=== PATIENT | male | born 1975 | race Caucasian/White ===

== ENCOUNTER 2023-01-28 21:53 | Emergency (ER) | payer OTHER ==
[~2023-01-28] VITALS: Ht 190.5 cm; Wt 158.3 kg
[2023-01-28] MEDS: MORPHINE SULFATE IM STA (22:26)
[2023-01-28] MEDS ORDERED: MORPHINE SULFATE ONE (22:28)
[2023-01-28 22:57] VITALS: BP 177/106; PULSE 90; RESP 18; TEMP 98.2; O2SAT 99
[2023-01-28] MEDS: LIDOCAINE HCL VISCOUS MM STA (23:15)
[2023-01-28] MEDS: MYLANTA PO STA (23:15)
[2023-01-28 23:42] VITALS: BP 119/61; PULSE 79; RESP 18; TEMP 98.2; O2SAT 94
== END 2023-01-28 23:45 | disposition home or self-care (01) ==
LOC: ER 21:53
DX: S92.001A Unspecified fracture of right calcaneus, initial encounter for closed fracture (principal); S92.002A Unspecified fracture of left calcaneus, initial encounter for closed fracture; I10 Essential (primary) hypertension; W19.XXXA Unspecified fall, initial encounter; Y93.89 Activity, other specified; Y92.89 Other specified places as the place of occurrence of the external cause; Y99.8 Other external cause status
CPT/HCPCS: 96372; 99284; 73630-LT; 73630-RT

== ENCOUNTER → 2024-05-18 | Outpatient (CLI) | payer OTHER ==
[2024-05-18 15:57] LABS: BASOPHIL % 0.6 % (0.2-1.2); EOSINOPHIL # 0.2 10^3/uL (0.0-0.2); EOSINOPHIL % 3.1 % (0.0-5.0); HEMATOCRIT(ML) 39.7 % (37.0-53.0); HEMOGLOBIN 14.2 g/dL (13.9-16.3); LYMPHOCYTES # 2.21 10^3/uL1 (1.0-4.8); LYMPHOCYTES % 34.5 % (24.0-44.0); MEAN CORP HGB 32.2 pg (26-34); MEAN CORP HGB CONCENTRATION 35.8 g/dL (33-36.5); MONOCYTES # 0.8 10^3/uL (0.3-0.8); MONOCYTES % 12.5 % (5.0-12.0); NEUTROPHIL # 3.2 10^3/uL (1.8-7.7); NEUTROPHILS % 49.3 % (41.0-85.0); PLATELET COUNT 227 10^3/uL (150-400); RED BLOOD CELL 4.41 10^6/uL (4.50-5.90); RED CELL DISTRIBUTION WIDTH 13.1 % (11.5-14.5); WHITE BLOOD CELL 6.4 10^3/uL (4.5-11.0)
[2024-05-18 16:06] LABS: +ADD MANUAL DIFF(NO CHRG) NO
[2024-05-18 16:12] LABS: INR 1.1; PROTHROMBIN PROTIME 11.2 SEC (9.3-11.6)
[2024-05-18 16:15] LABS: ALANINE AMINOTRANSFERASE(ML) 29 U/L (12-78); ALBUMIN/GLOBULIN RATIO 1.176; ALKALINE PHOSPHATASE 204 U/L (50-136); ANION GAP 7.9; ASPARTATE AMINO TRANSFERASE 23 U/L (0-35); CARBON DIOXIDE 32.5 mmol/L (20.0-32); CHOLESTEROL 84 mg/dL (120-240); CREATININE SERUM 1.19 mg/dL (0.59-1.40); EST GFR, NON-AA 65.5 (>/=60); GLUCOSE 85 mg/dL (74-106); HDL CHOLESTEROL 41 mg/dL (32-96); POTASSIUM 4.4 mmol/L (3.6-5.2); SODIUM 138 mmol/L (132-145)
[2024-05-18 16:35] LABS: LDL/HDL RATIO 0.9
[2024-05-20 14:14] LABS: HEP A AB, IgM Negative (Negative)
== END | disposition home or self-care (01) ==
LOC: LAB 15:31
PROVIDERS: ATTEND Student in an Organized Health Care Education/Training Program
DX: K75.81 Nonalcoholic steatohepatitis (NASH) (principal); Z98.890 Other specified postprocedural states
CPT/HCPCS: 36415; 74021; 80053; 80061; 80074; 85025; 85610; 85730

== ENCOUNTER → 2024-05-19 | Outpatient (CLI) | END | disposition home or self-care (01) | LOC: RAD 08:02 | PROVIDERS: ATTEND Student in an Organized Health Care Education/Training Program | DX: K75.81 Nonalcoholic steatohepatitis (NASH) (principal); R16.2 Hepatomegaly with splenomegaly, not elsewhere classified; Z90.49 Acquired absence of other specified parts of digestive tract | CPT/HCPCS: 76705 ==

== ENCOUNTER → 2024-07-11 | Outpatient (CLI) | payer OTHER | END | disposition home or self-care (01) | LOC: LAB 15:55 | PROVIDERS: ATTEND Student in an Organized Health Care Education/Training Program | DX: R74.8 Abnormal levels of other serum enzymes (principal) | CPT/HCPCS: 36415; 82150; 82306; 82607; 82728; 82746; 83550; 83615; 83690; 85651 ==

== ENCOUNTER → 2024-07-11 | Outpatient (CLI) | payer OTHER | END | disposition home or self-care (01) | LOC: RAD 15:24 | PROVIDERS: ATTEND Surgery | DX: E04.2 Nontoxic multinodular goiter (principal); R10.9 Unspecified abdominal pain; E07.9 Disorder of thyroid, unspecified; M43.16 Spondylolisthesis, lumbar region; M47.816 Spondylosis without myelopathy or radiculopathy, lumbar region; M48.062 Spinal stenosis, lumbar region with neurogenic claudication; Z90.49 Acquired absence of other specified parts of digestive tract | CPT/HCPCS: 74176; 76536 ==

== ENCOUNTER → 2024-09-26 | Outpatient (CLI) | payer OTHER | END | disposition home or self-care (01) | LOC: RAD 07:42 | PROVIDERS: ATTEND Student in an Organized Health Care Education/Training Program | DX: K76.0 Fatty (change of) liver, not elsewhere classified (principal); K83.8 Other specified diseases of biliary tract; R79.89 Other specified abnormal findings of blood chemistry; Z90.49 Acquired absence of other specified parts of digestive tract | CPT/HCPCS: 74181 ==